=== PATIENT | male | born 1995 | race Caucasian/White ===

== ENCOUNTER → 2016-11-30 | Outpatient (CLI) | payer OTHER ==
[2016-11-30 17:24] LABS: BASOPHILS 0.4 % (0.0-2.0); EOSINOPHILS 4.5 % (0.0-3.0); HEMATOCRIT 45.5 % (42.0-52.0); HEMOGLOBIN 15.9 gm/dL (14.0-18.0); LYMPHOCYTES 26.2 % (24.0-44.0); MCH 30.6 pg (26.0-34.0); MCHC 34.9 g/dL (28.0-37.0); MCV 87.5 fL (80.0-100.0); MONOCYTES 7.8 % (1.0-8.0); PLATELET COUNT 159 thou/uL (150-400); POLYS 61.1 % (36.0-66.0); RDW 12.9 % (10.5-14.5); WBC 6.6 thou/uL (4.0-11.0)
[2016-11-30 17:36] LABS: MANUAL DIFF NO
[2016-11-30 17:41] LABS: ALBUMIN 4.3 g/dL (3.4-5.0); CALCIUM 9.3 mg/dL (8.5-10.1); CREATININE 1.1 mg/dL (0.6-1.3); POTASSIUM 4.3 mmol/L (3.5-5.1); TOTAL PROTEIN 7.4 g/dL (6.4-8.2)
[2016-11-30 17:42] LABS: APTT 24.8 Seconds (24.5-32.8); INR 1.1; PROTIME 11.4 Seconds (9.3-11.4)
== END ==
LOC: LAB 16:57
PROVIDERS: Pediatrics Adolescent Medicine
DX: K62.5 Hemorrhage of anus and rectum (principal)